=== PATIENT | female | born 1990 | race Caucasian/White ===

== ENCOUNTER 2017-11-28 20:33 | Inpatient (IN) | payer OTHER ==
[~2017-11-28] VITALS: Ht 154.9 cm; Wt 3.6 kg
== END 2017-12-02 17:32 | disposition home or self-care (01) | DRG 765 ==
LOC: LDR 20:33 → SURG-SUITE 11-29 01:15
PROVIDERS: Obstetrics & Gynecology
PROC: 4A1HXCZ Monitoring of Products of Conception, Cardiac Rate, External Approach (ICD-10-PCS; 2017-11-29)
PROC: 10D00Z1 Extraction of Products of Conception, Low, Open Approach (ICD-10-PCS; principal; 2017-11-29 07:00)
DX: O64.1XX0 Obstructed labor due to breech presentation, not applicable or unspecified (principal); O41.03X0 Oligohydramnios, third trimester, not applicable or unspecified; Z3A.38 38 weeks gestation of pregnancy; Z37.0 Single live birth